=== PATIENT | female | born 1985 | race Caucasian/White ===

== ENCOUNTER → 2021-06-29 | Day surgery (SDC) | payer OTHER ==
[~2021-06-29] VITALS: Ht 167.6 cm; Wt 117.9 kg
[~2021-06-29] MED LIST: ABILIFY10 MG PO; BUSPIRONE HCL10 MG PO; DICYCLOMINE HCL20 MG PO; ESCITALOPRAM OX20 MG PO; SUCRALFATE1 GM PO; VYVANSE40 MG PO
[2021-06-29 09:26] LABS: HCG (URINE) SCREEN NEGATIVE (NEGATIVE)
== END | disposition home or self-care (01) ==
LOC: FAS 08:50
PROVIDERS: Student in an Organized Health Care Education/Training Program
DX: K62.1 Rectal polyp (principal); K31.7 Polyp of stomach and duodenum; K29.50 Unspecified chronic gastritis without bleeding; K31.9 Disease of stomach and duodenum, unspecified; K52.9 Noninfective gastroenteritis and colitis, unspecified; F90.9 Attention-deficit hyperactivity disorder, unspecified type; F41.9 Anxiety disorder, unspecified; F32.9 Major depressive disorder, single episode, unspecified; E78.5 Hyperlipidemia, unspecified; E66.01 Morbid (severe) obesity due to excess calories; E28.2 Polycystic ovarian syndrome; Z68.41 Body mass index [BMI] 40.0-44.9, adult; Z90.49 Acquired absence of other specified parts of digestive tract; Z79.899 Other long term (current) drug therapy
CPT/HCPCS: 84703; J1644; J2001; J2250; J2704; J7120